=== PATIENT | male | born 1975 | race Caucasian/White ===

== ENCOUNTER 2019-06-11 06:31 | Day surgery (SDC) | payer BC, OTHER, SELFPAY ==
[2019-06-10 10:32] VITALS: BMI 31.8
--- NOTE | 2019-06-11 07:51 | W.PM.OPSUD ---
Surgery/Procedure H&P Update DATE OF PROCEDURE: June 11, 2019 DATE H&P PERFORMED: 05/29/19 H&P UPDATE INFORMATION: I have reviewed H&P completed within last 30 days, I have examined patient prior to procedure and No changes to prior documentation PLANNED PROCEDURE: Operation Date: 06/11/19 08:15 Proposed Procedures p Colonoscopy(Not Applicable) - Froilan Chin MD
[2019-06-11 07:58] VITALS: BP 127/77; PULSE 72; RESP 18; TEMP 36.2; O2SAT 96
--- NOTE | 2019-06-11 08:00 | ANES.PREANE2 ---
Pre-Anesthetic Assessment Pre-Anesthetic Assessment: Height/Weight: Height 1.83 m Weight 106.594 kg Temp Pulse Resp BP Pulse Ox 97.2 F L 72 18 127/77 96 06/11/19 07:58 06/11/19 07:58 06/11/19 07:58 06/11/19 07:58 06/11/19 07:58 Preop Diagnosis: Family history of colon cancer Proposed Procedure: Operation Date: 06/11/19 08:15 Proposed Procedures p Colonoscopy(Not Applicable) - Froilan Chin MD Social: Social History: No alcohol and No tobacco Exam: Pre-Anes Outpt Exam: alert, oriented x 3, clear to auscultation bilaterally and regular rate & rhythm Airway: Submandibular: WNL Cervical ROM: WNL MP: 2 Dentition: Other (teeth ok) History/ROS: No significant history except as noted Pulmonary: Pulmonary: None reported CV/HEM: CV/HEM: None reported : : None reported Hepatic: Hepatic: None reported GI: GI: None reported Metabolic: Metabolic: None reported Musc/skel: Musc/skel: None reported Neuropsych: Neuropsych: None reported Anesthetic Plan: ASA status: 2 Anesthesia: Anesthesia Evaluation and MAC Risk of > 500 ml blood loss (7ml/kg in children): No PFSH Anesthesia PFSH: Surgical History H/O circumcision H/O skin graft History of laparoscopic appendectomy Family History Father Cancer colon cancer Heart disease Grandmother Cancer colon cancer Grandfather Cancer colon cancer Denies family history of Anesthesia complication Bleeding disorder Social History Smoking and tobacco status: never smoked Alcohol intake: never Household members: significant other Marital status: Single Current occupational status: employed History of recent travel: No Data Anesthesia Cardiac Studies: No Data to Display
[2019-06-11] MEDS: sodium chloride 0.9% 1,000 ML 30 ML (08:13)
[2019-06-11 08:28] VITALS: BP 115/69; PULSE 67; RESP 16; TEMP 36.1; O2SAT 97
[2019-06-11 08:40] VITALS: BP 117/75; PULSE 63; RESP 18; O2SAT 96
--- NOTE | 2019-06-11 09:02 | ANE.PACU2 ---
 Inpatient post-anesthesia follow up: Airway intact: Yes Vital signs: Temperature 97 F Pulse Rate 63 Respiratory Rate 18 Blood Pressure 117/75 Pulse Oximetry 96 Oxygen Delivery Me thod Room Air Oxygen Flow Rate 3 Fraction of Inspir ed Oxygen Hydration adequate: Yes Nausea and vomiting: No Mental status: Baseline
== END 2019-06-11 09:04 | disposition home or self-care (01) ==
PROVIDERS: PCP Physician Assistant Medical; Visit Provider Surgery
PROC: 0DJD8ZZ Inspection of Lower Intestinal Tract, Via Natural or Artificial Opening Endoscopic (ICD-10-PCS; CPT 45378; principal; 2019-06-11 08:15)
DX: Z12.11 Encounter for screening for malignant neoplasm of colon (principal); K64.8 Other hemorrhoids; Z80.0 Family history of malignant neoplasm of digestive organs; Z82.49 Family history of ischemic heart disease and other diseases of the circulatory system; Z83.3 Family history of diabetes mellitus
CPT/HCPCS: 12345; 45378; J2704; J7030

== ENCOUNTER → 2020-01-29 18:04 | Outpatient (BNVA) | payer BC, SELFPAY | PROVIDERS: PCP Physician Assistant Medical; Visit Provider Nurse Practitioner | DX: Z11.59 Encounter for screening for other viral diseases (principal) | CPT/HCPCS: 87635 ==